=== PATIENT | female | born 2000 | race Caucasian/White ===

== ENCOUNTER 2020-03-12 12:14 | Emergency (ER) | payer OTHER, SELFPAY ==
[2020-03-12 12:23] VITALS: BP 125/77; PULSE 72; RESP 16; TEMP 36.6; O2SAT 100
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
== END 2020-03-12 12:48 | disposition home or self-care (01) ==
PROVIDERS: Emergency Provider Nurse Practitioner; PCP Pediatrics
DX: S16.1XXA Strain of muscle, fascia and tendon at neck level, initial encounter (principal); V44.5XXA Car driver injured in collision with heavy transport vehicle or bus in traffic accident, initial encounter; S29.012A Strain of muscle and tendon of back wall of thorax, initial encounter; S46.912A Strain of unspecified muscle, fascia and tendon at shoulder and upper arm level, left arm, initial encounter
CPT/HCPCS: 99213; G0463

== ENCOUNTER 2021-04-10 11:40 | Emergency (ER) | payer OTHER, SELFPAY ==
[2021-04-10 11:47] VITALS: BP 121/70; PULSE 81; RESP 18; TEMP 36.7; O2SAT 99
--- NOTE | 2021-04-10 12:07 | ED.URI ---
HPI - URI/Sore Throat General Chief Complaint: Upper Respiratory Infection Stated Complaint: Sore Throat Time Seen by Provider: 04/10/21 11:54 Source: patient and RN notes reviewed Mode of arrival: ambulatory Limitations: no limitations History of Present Illness HPI Narrative: Patient presents today complaining of 3-day history of sore throat, fatigue, body aches, mild congestion. Denies fever, cough, nausea, vomiting, diarrhea. She currently rates her pain 5/10 and has been taking Advil with relief. She had her tonsils removed 2 years ago. States she has not had strep throat since that time. She has been vaccinated against COVID-19. No sick contacts. No recent antibiotic use. MD elicited complaint: sore throat Related Data Home Medications Medication Instructions Recorded Confirmed levonorgestrel [Mirena] See Rx Instructions .ROUTE .COMPLEX 04/10/21 04/10/21 Allergies Allergy/AdvReac Type Severity Reaction Status Date / Time ciprofloxacin [From Cipro] AdvReac Severe Hallucinati Verified 04/10/21 11:44 ng Review of Systems Review of Systems: CONSTITUTIONAL: Denies fever, chills, or sweats.+ Fatigue, body aches EYES: Denies visual changes, redness, or discharge. ENT: Denies rhinorrhea, congestion, or otalgia.+ Sore throat CARDIOVASCULAR: Denies chest pain, palpitations, or edema. RESPIRATORY: Denies cough or dyspnea. GASTROINTESTINAL: Denies abdominal pain, nausea, vomiting, or diarrhea. GENITOURINARY: Denies dysuria or hematuria. SKIN: Denies rash, itching, or wounds. MUSCULOSKELETAL: Denies back pain, joint pain, or myalgia. NEUROLOGIC: Denies headache, numbness, tingling, or weakness. PSYCH: Denies depression or anxiety. [facility] Surgical History Surgical History (Updated 04/10/21 @ 12:09 by Vivian Reed, REHABILITATION THERAPIST, ) Hx of tonsillectomy Comments At time of signature, I have reviewed and agree with nursing past medical, surgical, social and family history unless otherwise noted. Please see nursing chart for further information. There is no relevant family history pertinent to the presenting complaint Exam Narrative: GENERAL: Well-appearing, well-nourished, and in no acute distress. HEAD: Normocephalic, atraumatic. EYES: EOMI. No redness or drainage. Conjunctivae normal. ENT: Mucous membranes pink and moist. Nares clear. No rhinorrhea. TMs normal bilaterally. Throat mildly erythematous posteriorly without edema or exudate. Uvula midline. NECK: Normal AROM. Supple. Bilateral anterior cervical chain lymphadenopathy. CHEST: No respiratory distress. Clear to auscultation. HEART: Regular rate and rhythm. No murmur appreciated. Normal peripheral pulses. EXTREMITIES: Normal range of motion. No edema. SKIN: Warm, dry, no rash. Capillary refill normal. Normal skin turgor. NEURO: No focal deficits. Alert and oriented x3. Gait steady. PSYCH: Normal affect. No signs of depression or anxiety. Course Vital Signs Vital signs: Vital Signs Temperature 98.1 F 04/10/21 11:47 Pulse Rate 81 04/10/21 11:47 Respiratory Rate 18 04/10/21 11:47 Blood Pressure 121/70 04/10/21 11:47 Pulse Oximetry 99 04/10/21 11:47 Temperature 98.1 F 04/10/21 11:47 Pulse Rate 81 04/10/21 11:47 Respiratory Rate 18 04/10/21 11:47 Blood Pressure 121/70 04/10/21 11:47 Pulse Oximetry 99 04/10/21 11:47 Reviewed. Pt has been instructed to follow up with her PCP regarding her elevated blood pressure today. MDM - URI/Sore Throat Differential Diagnosis Differential diagnosis: Likely upper respiratory infection, otitis media, pharyngitis and other (Strep throat) Lab Data Attestation: I reviewed the patient's lab results. Labs: Strep Screen Positive Group A Strep *(Reference Range: Negative)* Critical Care Time Critical Care Time Critical Care Time: No Discharge Plan Discharge Clinical Impression: Strep throat Patient Dispos
== END 2021-04-10 12:13 | disposition home or self-care (01) ==
PROVIDERS: Emergency Provider Nurse Practitioner; PCP Pediatrics
DX: J02.0 Streptococcal pharyngitis (principal)
CPT/HCPCS: 87880; 99213; G0463

== ENCOUNTER 2021-05-22 18:45 | Emergency (ER) | payer OTHER, SELFPAY ==
[2021-05-22 18:49] VITALS: BP 121/71; PULSE 97; RESP 16; TEMP 37.2; O2SAT 98
--- NOTE | 2021-05-22 19:07 | ED.URI ---
HPI - URI/Sore Throat General Chief Complaint: Upper Respiratory Infection Stated Complaint: Sore Throat,Fever,Body Aches Source: patient and RN notes reviewed Mode of arrival: ambulatory History of Present Illness HPI Narrative: This is a 21-year-old female presented to urgent care with complaints sore throat, achy body, congestion and fatigue. Patient notes that her symptoms started yesterday and she took DayQuil at home for her symptoms. She also spends a lot of time with her nieces and nephews who are exposed to different viruses at school and here today to test for strep. She did recently test positive for strep. The patient denies SOB, CP, palpitation, extremity numbness, lightheadedness, dizziness, constipation, diarrhea, chills, or fever. Related Data Home Medications Medication Instructions Recorded Confirmed levonorgestrel [Mirena] See Rx Instructions .ROUTE .COMPLEX 04/10/21 05/22/21 Allergies Allergy/AdvReac Type Severity Reaction Status Date / Time ciprofloxacin [From Cipro] AdvReac Severe Hallucinati Verified 05/22/21 18:50 ng Review of Systems Review of Systems: A 14 organ system Review of Systems was performed and pertinent positives included in the HPI, otherwise remaining ROS is negative. [facility] Surgical History Surgical History Hx of tonsillectomy Family History Family History (Updated 05/22/21 @ 19:10 by CLEMENT Chua) Other Family history non-contributory Exam Narrative: GENERAL: This is a well-nourished, well-developed patient, in no apparent distress. HEAD: normocephalic, atraumatic. EYES: PERRL. Sclera clear/white. Vision is grossly intact. EARS: External ears normal, auditory canals clear and without drainage, TMs normal without perforation. Hearing grossly intact. NOSE: External nose normal with no obvious nasal discharge, nares without redness, no rhinorrhea. THROAT: Mucous membranes moist, posterior pharynx with erythematous NECK: Neck supple, non-tender without lymphadenopathy, masses or thyromegaly. CARDIOVASCULAR: Regular rate and rhythm without murmurs, gallops, or rubs. RESPIRATORY: Clear to auscultation. Breath sounds equal bilaterally. No wheezes, rales, or rhonchi. GASTROINTESTINAL: Abdomen soft, non-tender, nondistended. Bowel sounds are active. No hepato-splenomegaly, or palpable masses. No guarding. SKIN: warm, intact with no suspicious lesions or rash, good texture and turgor. NEURO: awake, alert, and oriented to person, place and time. There were no obvious focal neurologic abnormalities. Steady gait EXTREMITIES: Normal range of motion. No edema. No calf tenderness. Negative Homans sign bilaterally. BACK: Nontender without deformity or crepitance. No flank tenderness. Course Course Emergency Course: Patient diagnosed with viral illness instructed to use [id number]-[id number] medication for symptoms Vital Signs Vital signs: Vital Signs Temperature 98.9 F 05/22/21 18:49 Pulse Rate 97 05/22/21 18:49 Respiratory Rate 16 05/22/21 18:49 Blood Pressure 121/71 05/22/21 18:49 Pulse Oximetry 98 05/22/21 18:49 Temperature 98.9 F 05/22/21 18:49 Pulse Rate 97 05/22/21 18:49 Respiratory Rate 16 05/22/21 18:49 Blood Pressure 121/71 05/22/21 18:49 Pulse Oximetry 98 05/22/21 18:49 MDM - URI/Sore Throat Differential Diagnosis Differential diagnosis: Likely upper respiratory infection, sinusitis, viral infection, influenza and pharyngitis Lab Data Labs: Strep Screen Presumptive Negative *(Reference Range: Negative)* Discharge Plan Discharge Clinical Impression: Viral infection Patient Disposition: Home, Self-Care Condition: Stable Instructions: Antibiotic Form, Viral Syndrome (ED) Additional Instructions: This is likely viral illness, no antibiotic is needed at this time. Treatment is aimed towar
== END 2021-05-22 19:10 | disposition home or self-care (01) ==
PROVIDERS: Emergency Provider Nurse Practitioner; PCP Pediatrics
DX: B34.9 Viral infection, unspecified (principal)
CPT/HCPCS: 87081; 87880; 99213; G0463

== ENCOUNTER 2021-05-25 18:02 | Emergency (ER) | payer OTHER, SELFPAY ==
--- NOTE | ~2021-05-25 | XR_ITS ---
EXAMINATION: XR chest 2V 05/25/2021 18:48 INDICATION: Shortness of breath PROCEDURE: 2 view chest COMPARISON: No prior studies for comparison. FINDINGS: The lungs are clear. The cardiomediastinal silhouette is within normal limits. There are no pleural effusions. There is no pneumothorax suspected. IMPRESSION: 1: NO ACUTE CARDIOPULMONARY DISEASE. Reviewed, dictated and finalized at location A. [employer] DIRECTOR
[2021-05-25 18:39] VITALS: BP 122/69; PULSE 107; RESP 18; TEMP 38.4; O2SAT 98
[2021-05-25 18:41] VITALS: BP 122/69; PULSE 107; RESP 18; TEMP 38.4; O2SAT 98
--- NOTE | 2021-05-25 19:32 | ED.URI ---
HPI - URI/Sore Throat General Chief Complaint: Upper Respiratory Infection Stated Complaint: sob,flu diagnosis Source: patient and RN notes reviewed Limitations: no limitations History of Present Illness HPI Narrative: The patient, previously healthy presents with mother who is a nurse, with chief complaints of cough and chest discomfort. She was diagnosed with influenza A yesterday and received symptomatic treatment hospital ED. This is for 5-day history of cough, fever 102.8, congestion. She is improved with Zofran, antipyretics, inhaler as fever decreased from 102, and sats remained stable. Mother would like a chest x-ray as young adult complains of parasternal chest pains with breathing, and patient sibling has completely resolved symptoms the same diagnosis. No loss of taste/smell, wheezing/sneezing, vomiting/diarrhea/dehydration, calf pain/edema, presyncope Related Data Home Medications Medication Instructions Recorded Confirmed levonorgestrel [Mirena] See Rx Instructions .ROUTE .COMPLEX 04/10/21 05/22/21 albuterol sulfate INHALATION 05/25/21 ondansetron HCl 4 mg PO Q8-10H PRN 05/25/21 05/25/21 Allergies Allergy/AdvReac Type Severity Reaction Status Date / Time ciprofloxacin [From Cipro] AdvReac Severe Hallucinati Verified 05/22/21 18:50 ng Review of Systems Review of Systems: General/Constitutional: No weight loss, REPORTS fever Eyes: N0: Redness,discharge Ears/Nose/Throat: No: Epistaxis,ear discharge Respiratory: Denies: Hemoptysis Gastrointestinal: No Vomiting, Bleeding-rectal Skin: No Lumps, eruption Neurologic: No Focal Weakness,Sz Hematologic: Denies: Petechiae/Purpura Psychiatric: No: Suicida ideationl All Other Systems: Reviewed and Negative PMFSH Surgical History Surgical History Hx of tonsillectomy Family History Family History (Updated 05/22/21 @ 19:10 by CLEMENT Chua) Other Family history non-contributory Comments At time of signature, agree with nursing past medical, surgical, social and family history. There is no relevant family history pertinent to the presenting complaint Exam Narrative: General Appearance: Slightly flushed/febrile appearing, Well nourished EYE: PERRLA, Conjunctiva clear Ears: Auditory canal normal, TM normal Nose: Rhinorrhea, Mucousal erythema Mouth/Throat: MM moist, Uvula midline, Pharyngeal erythema Neck: Supple, No adenopathy Respiratory: No respiratory distress, Breath sounds equal, Clear to auscultation Cardiovascular: RRR, No JVD Musculoskeletal: Non tender, Normal strength Skin: Warm, Dry Neurological: A&O x3, CN II-XII intact Psychiatric: Normal mood, Normal affect Course Course Emergency Course: Films visualized, interpreted by radiologist, agree, normal see report Vital Signs Vital signs: Vital Signs Temperature 101.2 F H 05/25/21 18:39 Pulse Rate 107 H 05/25/21 18:39 Respiratory Rate 18 05/25/21 18:39 Blood Pressure 122/69 05/25/21 18:39 Pulse Oximetry 98 05/25/21 18:39 Temperature 101.2 F H 05/25/21 18:41 Pulse Rate 107 H 05/25/21 18:41 Respiratory Rate 18 05/25/21 18:41 Blood Pressure 122/69 05/25/21 18:41 Pulse Oximetry 98 05/25/21 18:41 Discharge Plan Discharge Clinical Impression: Cough, Hx of influenza Patient Disposition: Home, Self-Care Condition: Stable Instructions: Influenza (DC) Prescriptions: New codeine-guaifenesin 10-100 mg/5 mL liquid 7.5 ml PO TID PRN (Reason: cough) Qty: 118 RF: 0 No Action Mirena 20 mcg/24 hours (7 yrs) 52 mg Intrauterine Device See Rx Instructions .ROUTE .COMPLEX RF: 0 albuterol sulfate 90 mcg/actuation HFA aerosol inhaler INHALATION RF: 0 ondansetron HCl 4 mg tablet 4 mg PO Q8-10H PRN (Reason: Nausea) RF: 0 Follow-up/Referrals: Sigifredo Garcia MD [Primary Care Provider] - Stand Alone Forms: Work/School Release IP
== END 2021-05-25 19:52 | disposition home or self-care (01) ==
PROVIDERS: Emergency Provider Emergency Medicine; PCP Pediatrics
DX: R05.9 Cough, unspecified (principal); Z86.19 Personal history of other infectious and parasitic diseases
CPT/HCPCS: 71046; 99213; G0463

== ENCOUNTER 2022-07-29 14:45 | Emergency (ER) | payer OTHER, SELFPAY ==
[2022-07-29 14:47] VITALS: BP 132/72; PULSE 63; RESP 18; TEMP 36.9; O2SAT 100
[2022-07-29] MEDS: FAMOTIDINE 20 MG/2 ML VIAL IV PUSH (16:05)
[2022-07-29] MEDS: methylPREDNISolone SOD SUCC 125 MG VIAL IV PUSH (16:06)
--- NOTE | 2022-07-29 17:02 | ED.ALLEREA ---
HPI - Allergic Reaction General Chief complaint: Allergic Reaction Stated complaint: allergic rxn Time Seen by Provider: 07/29/22 15:37 History of Present Illness HPI narrative: Patient is a 22-year-old female who presents ER with allergic reaction. Patient has a tree nut allergy. She actually ate some chocolate with hazelnut in it. She has been having some burning discomfort in the back of her throat. Mild congestion in her sinuses. No difficulty breathing or swallowing. No chest pain or chest pressure. Mild nausea. She took some Benadryl prior to coming. Her home epinephrine was . No itching rash. Related Data Home Medications Medication Instructions Recorded Confirmed levonorgestrel 21 mcg/24 hours (8 See Rx Instructions .Route .COMPLEX 04/10/21 05/22/21 yrs) 52 mg intrauterine device (Mirena) albuterol sulfate 90 mcg/actuation inhalation 05/25/21 aerosol inhaler ondansetron HCl 4 mg tablet 4 mg PO Q8-10H PRN Nausea 05/25/21 05/25/21 Allergies Allergy/AdvReac Type Severity Reaction Status Date / Time ciprofloxacin [From Cipro] AdvReac Severe Hallucinati Verified 03/12/22 07:56 ng Review of Systems Constitutional: Constitutional: Denies chills, Denies fatigue and Denies fever(s) ENT: Denies dysphagia, Denies nasal congestion and Reports sore throat Cardiovascular: Cardiovascular: Denies chest pain, Denies rapid heart rate and Denies radiating jaw, neck or arm pain Respiratory: Respiratory: Denies cough, Denies dyspnea and Denies wheezing Gastrointestinal: Gastrointestinal: Denies abdominal pain, Denies diarrhea, Reports nausea and Denies vomiting PMFSH Past Medical History Medical History (Updated 07/29/22 @ 17:13 by Rush Lozoya MD) Healthy female adult Surgical History Surgical History (System 03/12/22 @ 07:56 by Liz Spivey) Hx of tonsillectomy Family History Family History (System 03/12/22 @ 07:56 by Liz Spivey) Other Family history non-contributory Exam Narrative: GENERAL: Well-appearing, well-nourished, and in no acute distress. HEAD: Normocephalic, atraumatic. ENT: Mucous membranes moist. No angioedema or tongue swelling. Normal-appearing posterior oropharynx without edema to uvula. Tolerating oral secretions. CHEST: Clear to auscultation. No respiratory distress. HEART: Regular rate and rhythm. Normal peripheral pulses. EXTREMITIES: Normal range of motion. No edema. SKIN: Warm, dry, no rash. NEURO: Alert and oriented x3. PSYCH: Normal mood and affect. Course Course Emergency Course: Patient resting comfortably. Feels improved with Pepcid and Solu-Medrol. No difficulty breathing or swallowing. Recommend some additional Benadryl this evening which she has access to. Will prescribe her an EpiPen. Discharge home. Vital Signs Vital signs: Vital Signs Temperature 98.5 F 07/29/22 14:47 Pulse Rate 63 07/29/22 14:47 Respiratory Rate 18 07/29/22 14:47 Blood Pressure 132/72 07/29/22 14:47 Pulse Oximetry 100 07/29/22 14:47 Oxygen Delivery Room Air 07/29/22 14:47 Temperature 98.5 F 07/29/22 14:47 Pulse Rate 63 07/29/22 14:47 Respiratory Rate 18 07/29/22 14:47 Blood Pressure 132/72 07/29/22 14:47 Pulse Oximetry 100 07/29/22 14:47 Oxygen Delivery Room Air 07/29/22 14:47 Discharge Plan Discharge Clinical Impression: Allergic reaction to tree nut Patient Disposition: Home, Self-Care Condition: Stable Instructions: Food Allergy (ED) Additional Instructions: Return the ER if you cannot breathe, you cannot swallow, you have chest pain or shortness of breath, you have additional concerns. Prescriptions: New epinephrine 0.3 mg/0.3 mL auto-injector 0.3 mg IM ONCE Qty: 2 0RF Rx Instructions: as a single dose; may repeat once No Action Mirena 20 mcg/24 hours (7 yrs) 52 mg Intrauterine Device See Rx Instructions .ROUTE .COMPLEX Rx Instructions: 20
== END 2022-07-29 17:25 | disposition home or self-care (01) ==
PROVIDERS: Emergency Provider Emergency Medicine
DX: T78.1XXA Other adverse food reactions, not elsewhere classified, initial encounter (principal); Z91.018 Allergy to other foods
CPT/HCPCS: 96374; 96375; 99284; J2930

== ENCOUNTER 2022-11-21 13:59 | Emergency (ER) | payer OTHER, SELFPAY ==
[2022-11-21 14:07] VITALS: BP 131/70; PULSE 105; RESP 18; TEMP 37.6; O2SAT 99
[2022-11-21] MEDS: ONDANSETRON HCL ODT 4 MG TABLET PO (15:20)
[2022-11-21 15:44] LABS: Strep Group A RT-PCR NOT DETECTED (Negative)
[2022-11-21] MEDS: IBUPROFEN 600 MG TABLET PO (15:48)
[2022-11-21 16:23] VITALS: TEMP 37.8
[2022-11-21 16:24] VITALS: BP 102/66; PULSE 96; RESP 17; TEMP 37.8; O2SAT 100
--- NOTE | 2022-11-21 16:27 | ED.GENADULT ---
HPI - General Adult General Chief complaint: Upper Respiratory Infection Stated complaint: sore throat Time Seen by Provider: 11/21/22 14:41 History of Present Illness HPI narrative: Patient is a 22-year-old female who presents ER with sore throat. Ongoing over the last week. She was seen at [facility] urgent care and swabbed for COVID/mono/flu/strep and they were all negative. Patient's sore throat continues. Associated sinus congestion and cough. The pain makes it where she does not want to eat when she will have vomiting when she gags. She has no antiemetic medication. No abdominal discomfort. No known sick contacts. No urinary frequency urgency or dysuria. Related Data Home Medications Medication Instructions Recorded Confirmed levonorgestrel 21 mcg/24 hours (8 See Rx Instructions .Route .COMPLEX 04/10/21 05/22/21 yrs) 52 mg intrauterine device (Mirena) albuterol sulfate 90 mcg/actuation inhalation 05/25/21 aerosol inhaler ondansetron HCl 4 mg tablet 4 mg PO Q8-10H PRN Nausea 05/25/21 05/25/21 Allergies Allergy/AdvReac Type Severity Reaction Status Date / Time ciprofloxacin [From Cipro] AdvReac Severe Hallucinati Verified 03/12/22 07:56 ng Review of Systems Review of Systems: All systems reviewed & are unremarkable except as noted in HPI and below Constitutional: Constitutional: Reports chills, Reports fatigue and Reports fever(s) ENT: Reports nasal congestion and Reports sore throat Cardiovascular: Cardiovascular: Denies chest pain and Denies rapid heart rate Gastrointestinal: Gastrointestinal: Denies abdominal pain, Denies diarrhea, Reports nausea and Reports vomiting Genitourinary: Genitourinary: Denies nocturia and Denies dysuria PMFSH Past Medical History Medical History (Updated 11/21/22 @ 16:54 by Rush Lozoya MD) Healthy female adult Surgical History Surgical History (Updated 07/29/22 @ 17:13 by Rush Lozoya MD) Hx of tonsillectomy Family History Family History (System 03/12/22 @ 07:56 by Liz Spivey) Other Family history non-contributory Exam Narrative: GENERAL: Well-appearing, well-nourished, and in no acute distress. HEAD: Normocephalic, atraumatic. EYES: PERRL and EOMI. ENT: Mucous membranes moist. Posterior pharyngeal erythema without vesicles, no tonsillar hypertrophy or exudate. TMs normal bilaterally. NECK: Supple. Anterior cervical chain lymphadenopathy noted. Full range of motion. CHEST: Clear to auscultation. No respiratory distress. HEART: Regular rate and rhythm. Normal peripheral pulses. EXTREMITIES: Normal range of motion. No edema. NEURO: Alert and oriented x3. PSYCH: Normal mood and affect. Course Course Emergency Course: Discussed diagnosis and treatment plan with patient and mother who verbalized understanding. Patient declined viscous lidocaine to soothe the back of her throat. She would like to go home with Zofran. Patient may have blyz-oswx-ozt-mouth disease which is causing irritation back of her throat or she may just have bad postnasal drip. Otherwise I discussed that this is a self-limiting infection. Encourage hydration at home. Vital Signs Vital signs: Vital Signs Temperature 99.6 F 11/21/22 14:07 Pulse Rate 105 H 11/21/22 14:07 Respiratory Rate 18 11/21/22 14:07 Blood Pressure 131/70 11/21/22 14:07 Pulse Oximetry 99 11/21/22 14:07 Oxygen Delivery Room Air 11/21/22 14:07 Temperature 100.1 F H 11/21/22 16:24 Pulse Rate 96 11/21/22 16:24 Respiratory Rate 17 11/21/22 16:24 Blood Pressure 102/66 11/21/22 16:24 Pulse Oximetry 100 11/21/22 16:24 Oxygen Delivery Room Air 11/21/22 14:07 Medical Decision Making Vital Signs Vital Signs: Vital Signs Temperature 99.6 F 11/21/22 14:07 Pulse Rate 105 H 11/21/22 14:07 Respiratory Rate 18 11/21/22 14:07 Blood Pressure 131/70 11/21/22 14:07 Pulse Oximetry 99 11/21/22 14:07 Oxygen Delivery Room
== END 2022-11-21 17:04 | disposition home or self-care (01) ==
PROVIDERS: Emergency Provider Emergency Medicine
DX: B34.9 Viral infection, unspecified (principal)
CPT/HCPCS: 87651; 99283; A9270

== ENCOUNTER 2023-02-12 17:36 | Emergency (ER) | payer OTHER, SELFPAY ==
--- NOTE | 2023-02-12 17:49 | ED.SKABFB ---
HPI - Skin/Abscess/Foreign Bdy General Chief complaint: Skin/Abscess/Foreign Body Stated complaint: INSECT BITE ON HIP Time Seen by Provider: 02/12/23 17:49 Source: patient Mode of arrival: ambulatory Limitations: no limitations History of Present Illness HPI narrative: 22 yo F presents with redness, pain and itching to R hip. In [place] 6 wks ago and had multiple bug bites. States bug bite to R hip keeps coming and going . Redness was worse yesterday. Not using any OTC meds to treat. All systems reviewed and negative except as noted above. Related Data Home Medications Medication Instructions Recorded Confirmed levonorgestrel 21 mcg/24 hours (8 See Rx Instructions .Route .COMPLEX 04/10/21 02/12/23 yrs) 52 mg intrauterine device (Mirena) Allergies Allergy/AdvReac Type Severity Reaction Status Date / Time ciprofloxacin [From Cipro] AdvReac Severe Hallucinati Verified 02/12/23 18:00 ng tree nuts Allergy Severe Anaphylaxis Uncoded 02/12/23 18:00 Review of Systems Review of Systems: CONSTITUTIONAL: Denies fever, chills, or sweats. EYES: Denies visual changes, redness, or discharge. ENT: Denies rhinorrhea, congestion, sore throat, or otalgia. CARDIOVASCULAR: Denies chest pain, palpitations, or edema. RESPIRATORY: Denies cough or dyspnea. GASTROINTESTINAL: Denies abdominal pain, nausea, vomiting, or diarrhea. GENITOURINARY: Denies dysuria or hematuria. SKIN: Reports bug bite to right hip with pain and itching. MUSCULOSKELETAL: Denies back pain, joint pain, or myalgia. NEUROLOGIC: Denies headache, numbness, or weakness. PSYCHIATRIC: Denies anxiety or depression. All other systems reviewed are negative, except as documented in HPI. [facility] Past Medical History Medical History (Updated 02/12/23 @ 17:52 by Randa Collins NP) BMI 25.0-25.9,adult Encounter to establish care Healthy female adult On [facility] Tree nut allergy URI (upper respiratory infection) Surgical History Surgical History Hx of tonsillectomy Family History Family History Mother Hyperlipidemia Migraines Father Hypertension Anxiety Other Family history non-contributory Social History Social History Smoking status: Never smoker Second hand tobacco smoke exposure: No Alcohol intake: current Alcohol use details: 2x monthly Substance use: never Lack of Transportation: No Lack of Food: Never True Current Housing: I Have Housing Concerned About Future Housing: No Difficulty Paying Gas/Electric Bills: No Difficulty Paying for Meds: No Currently Unemployed: No Education: Bachelor's Degree Difficulty w/ Childcare or Family Care: No Occupation/Education: occupation Gender identity (if verbalized by the patient): Female Comments At time of signature, agree with nursing past medical, surgical, social and family history. There is no relevant family history pertinent to the presenting complaint. Exam Narrative: GENERAL: This is a well-nourished, well-developed patient, in no apparent distress. HEAD: normocephalic, atraumatic. EYES: PERRL. Sclera clear/white. Vision is grossly intact. EARS: External ears normal NOSE: External nose normal NECK: Neck supple, non-tender without lymphadenopathy, masses or thyromegaly. CARDIOVASCULAR: Regular rate and rhythm without murmurs, gallops, or rubs. RESPIRATORY: Clear to auscultation. Breath sounds equal bilaterally. No wheezes, rales, or rhonchi. SKIN: warm, Dry, intact, good texture and turgor. erythema to R anterior hip approx. 6x8cm. some scaling to skin concerning of eczema. mild warmth. no fluctuance or drainage. NEURO: awake, alert, and oriented to person, place and time. There were no obvious focal neurologic abnormalities. EXTREMITIES: No joint tenderness, eff
[2023-02-12 17:50] VITALS: BP 117/76; PULSE 71; RESP 16; TEMP 37; O2SAT 100
== END 2023-02-12 17:58 | disposition home or self-care (01) ==
PROVIDERS: Emergency Provider Nurse Practitioner Family; PCP Internal Medicine
DX: L03.115 Cellulitis of right lower limb (principal); S70.261A Insect bite (nonvenomous), right hip, initial encounter; W57.XXXA Bitten or stung by nonvenomous insect and other nonvenomous arthropods, initial encounter
CPT/HCPCS: 99213; G0463

== ENCOUNTER 2023-02-24 17:37 | Emergency (ER) | payer OTHER, SELFPAY ==
--- NOTE | 2023-02-24 17:40 | ED.URI ---
HPI - URI/Sore Throat General Chief Complaint: Upper Respiratory Infection Stated Complaint: Sore Throat Time Seen by Provider: 02/24/23 17:40 Source: patient Mode of arrival: ambulatory Limitations: no limitations History of Present Illness HPI Narrative: Patient is a 22-year-old female who presents with sore throat this started at 5:00 a.m.. Patient recently finished a course of Keflex on the . Denies any congestion, ear pain, fever, chills, cough, nausea, vomiting, diarrhea, shortness of breath. He has taken ibuprofen with mild relief. Related Data Home Medications Medication Instructions Recorded Confirmed levonorgestrel 21 mcg/24 hours (8 See Rx Instructions .Route .COMPLEX 04/10/21 02/24/23 yrs) 52 mg intrauterine device (Mirena) Allergies Allergy/AdvReac Type Severity Reaction Status Date / Time ciprofloxacin [From Cipro] AdvReac Severe Hallucinati Verified 02/24/23 17:48 ng tree nuts Allergy Severe Anaphylaxis Uncoded 02/24/23 17:48 Review of Systems Review of Systems: All systems reviewed & are unremarkable except as noted in HPI and below Constitutional: Constitutional: Denies body ache(s), Denies chills, Denies fatigue, Denies fever(s), Denies headache(s), Denies malaise and Denies weakness Eyes: Eyes: Denies blurry vision, Denies itchy eyes and Denies loss of vision ENT: Denies otalgia, Denies headache(s), Denies nasal congestion, Denies sinus pain and Reports sore throat Cardiovascular: Cardiovascular: Denies chest pain, Denies irregular heart rhythm and Denies dyspnea Respiratory: Respiratory: Denies cough and Denies dyspnea Gastrointestinal: Gastrointestinal: Denies abdominal pain, Denies diarrhea, Denies nausea and Denies vomiting Musculoskeletal: Musculoskeletal: Denies back pain, Denies myalgias and Denies arthralgias Integumentary/Breasts: Skin/Breast: Denies pruritus and Denies rash Neurologic: Denies headache(s), Denies loss of vision and Denies weakness Psychiatric: Psychiatric: Reports no additional psychiatric complaints Endocrine: Endocrine: Denies fatigue Allergic/Immunologic: Allergic/Immunologic: Denies itchy eyes PMFSH Past Medical History Medical History BMI 25.0-25.9,adult Encounter to establish care Healthy female adult [facility] Tree nut allergy URI (upper respiratory infection) Surgical History Surgical History Hx of tonsillectomy Family History Family History Mother Hyperlipidemia Migraines Father Hypertension Anxiety Other Family history non-contributory Social History Social History Smoking status: Never smoker Second hand tobacco smoke exposure: No Alcohol intake: current Alcohol use details: 2x monthly Substance use: never Lack of Transportation: No Lack of Food: Never True Current Housing: I Have Housing Concerned About Future Housing: No Difficulty Paying Gas/Electric Bills: No Difficulty Paying for Meds: No Currently Unemployed: No Education: Bachelor's Degree Difficulty w/ Childcare or Family Care: No Occupation/Education: occupation Gender identity (if verbalized by the patient): Female Comments At time of signature, agree with nursing past medical, surgical, social and family history. There is no relevant family history pertinent to the presenting complaint. Exam Const: General: cooperative, healthy appearing, comfortable, no acute distress and well nourished Nutritional Appearance: well nourished Orientation/consciousness: patient oriented x3 Limitations: no limitations HENMT: Head: normal to inspection, normocephalic and atraumatic Ears: hearing grossly normal bilaterally, external ears normal, TM's normal bilaterally, EAC's normal and no peria
[2023-02-24 17:45] VITALS: BP 106/69; PULSE 70; RESP 16; TEMP 36.2; O2SAT 98
== END 2023-02-24 18:15 | disposition home or self-care (01) ==
PROVIDERS: Emergency Provider Nurse Practitioner Family; PCP Internal Medicine
DX: J02.9 Acute pharyngitis, unspecified (principal)
CPT/HCPCS: 87081; 87880; 99213; G0463